=== PATIENT | female | born 1990 | race African-American/Black ===

== ENCOUNTER 2019-01-09 21:30 | Emergency (ER) | payer OTHER ==
[2019-01-09 22:05] LABS: #Eosinphils 0.3 thou/uL (0.0-0.7); #Lymphocytes 2.1 thou/uL (1.20-3.40); #Monocytes 0.9 thou/uL (0.11-0.59); #Neutrophils 8.7 thou/uL (1.40-6.50); %Basophils 0.4 % (0.0-1.0); %Eosinophils 2.4 % (0.0-10.0); %Lymphocytes 17.3 % (21.0-51.0); %Monocytes 7.3 % (0.0-10.0); %Neutrophils 72.6 % (42.0-75.0); Hemoglobin 9.6 g/dL (12.0-16.0); Mean Corpuscular HGB CONC 32.1 g/dL (32.0-36.0); Mean Corpuscular Volume 90.3 fL (78.0-98.0); Mean Platelet Volume 7.1 fL (7.4-10.4); Platelet Count 355 thou/uL (130-400); RBC Distribution Width 13.5 % (11.5-14.5); White Blood Cell (WBC) Count 11.9 thou/uL (4.8-10.8)
[2019-01-09 22:06] LABS: Bilirubin Negative (Negative); Blood, Urine Negative (Negative); Clarity Clear (Clear); Glucose, Urine (Dipstick) Normal (Negative); Leukocyte 75 Leu/uL (Negative); Mucous/LPF Rare LPF (<2+); Nitrite Negative (Negative); Protein, Urine (Dipstick) 10 mg/dL (Neg-Trace); Squamous Epithelial 0-3 HPF (0-3); Urobilinogen Normal mg/dL (Less than 2)
[2019-01-09 22:07] LABS: Bacteria/HPF 1+ HPF (None Seen)
[2019-01-09 22:30] LABS: ALT (SGPT) 23 U/L (8-55); AST (SGOT) 30 U/L (5-34); Albumin 3.3 g/dL (3.5-5.0); Alkaline Phosphatase 57 U/L (40-150); Anion Gap 10 mmol/L (10-20); BUN (Urea Nitrogen) 6 mg/dL (7.0-18.7); Bilirubin, Total 0.3 mg/dL (0.2-1.2); Calc. Creatinine Clearance 0 mL/min (70-130); Calcium 9.1 mg/dL (7.8-10.44); Carbon Dioxide 23 mmol/L (22-29); Chloride 103 mmol/L (98-107); Estimated GFR-MDRD Greater than 90; Glucose 95 mg/dL (70-105); Potassium 3.3 mmol/L (3.5-5.1); Protein, Total 7.3 g/dL (6.0-8.3); Sodium 133 mmol/L (136-145)
== END 2019-01-09 23:59 | disposition home or self-care (01) ==
LOC: ERS 21:30
DX: O23.42 Unspecified infection of urinary tract in pregnancy, second trimester (principal); O99.352 Diseases of the nervous system complicating pregnancy, second trimester; G43.909 Migraine, unspecified, not intractable, without status migrainosus; Z3A.18 18 weeks gestation of pregnancy
CPT/HCPCS: 36415; 80053; 81003; 81015; 84702; 85025; 87086; 99284

== ENCOUNTER 2019-03-08 20:01 | Day surgery (SDC) | payer OTHER ==
[2019-03-08 20:52] VITALS: BP 136/85; TEMP 98.7; BMI 33.1
[2019-03-08 20:59] LABS: Amnisure Test No Membranes Rupture (No Rupture)
[2019-03-08 21:00] LABS: Amnisure Internal Control QC ACCEPTABLE (ACCEPTABLE)
--- NOTE | 2019-03-08 22:19 | PDOC.LDHP ---
Labor and Delivery H&P Chief complaint: loss of fluid HPI: 28 y/o at 27w4d, patient of Dr. Britton, presents with ?LOF. Patient reports a large gush of clear fluid earlier with no continued leaking. Denies VB, ctx, or other concerns. ROS neg for HEENT, cv, pulm, gi, gu, neuro, psych, skin, musculoskeletal or constitutional symptoms other than mentioned above. OB History Details: Hx SROM and preeclampsia at 35 weeks 1 prior SAB Past Medical History: None Current medications: pre-jo vitamins Previous surgical history: none Allergies/Adverse Reactions: Allergies Allergy/AdvReac Type Severity Reaction Status Date / Time No Known Allergies Allergy Verified 03/08/19 20:53 Social history: none - Physical Exam Vital signs reviewed and normal: yes General: NAD, resting Lungs: nonlabored breathing Abdomen: gravid Extremeties: no edema FHT: category 1 (140s, mod variability, + accels, single variable decel) - Vaginal Exam cm dilated: 0 Effacement: 0% Station: -3 - Assessment 28 y/o at 27w4d with no e/o SROM. Amnisure negative. Speculum exam negative for pooling or valsalva. status reassuring. Bedside ultrasound performed with normal ADRIANA (22cm), good movement and tone. - Plan -: D/c home with precautions. Advised to keep all appointments.
== END 2019-03-08 22:45 | disposition home or self-care (01) ==
LOC: L&D/OP 20:01
PROVIDERS: ATTEND Obstetrics & Gynecology
DX: O99.89 Other specified diseases and conditions complicating pregnancy, childbirth and the puerperium (principal); N89.8 Other specified noninflammatory disorders of vagina; Z3A.27 27 weeks gestation of pregnancy
CPT/HCPCS: 76815; 84112; 87480; 87510; 87660; 99283

== ENCOUNTER 2019-03-10 13:55 | Day surgery (SDC) | payer OTHER ==
[2019-03-10 14:27] VITALS: BMI 31.2
[2019-03-10 14:35] VITALS: BP 126/66; TEMP 99.3
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
== END 2019-03-10 15:20 | disposition home health service (06) ==
LOC: L&D/OP 13:55
PROVIDERS: ATTEND Obstetrics & Gynecology
DX: O99.89 Other specified diseases and conditions complicating pregnancy, childbirth and the puerperium (principal); R10.2 Pelvic and perineal pain; Z3A.27 27 weeks gestation of pregnancy; V49.60XA Unspecified car occupant injured in collision with unspecified motor vehicles in traffic accident, initial encounter; Y92.219 Unspecified school as the place of occurrence of the external cause

== ENCOUNTER 2019-04-09 07:49 | Day surgery (SDC) | payer OTHER ==
[2019-04-09] MEDS ORDERED: hydrALAZINE 20 MG/ML VIAL SLOW IVP PRN ×2 (09:50→10:10)
--- NOTE | 2019-04-09 11:14 | ER ---
DATE OF SERVICE: 04/09/2019 TIME OF SERVICE: 10:30. PRESENTING COMPLAINT: Decreased movement overnight. HISTORY OF PRESENT ILLNESS: Ms. Wong is a 28-year-old 2, para 1, with EDC of 06/03, placing her at 32 weeks' gestation, who works at [employer]. She sees Dr. Nolan Britton. She reports decreased movement overnight, presented to the [facility] ER. In the [facility] ER, she was noted to have FHTs in the 140s. She was transferred to Labor and Delivery at [facility] for nonstress test and for biophysical profile. During ambulance ride, she felt the baby start moving. SANITARY INSPECTOR HISTORY: x1 at 35 weeks, 6 pounds and 7 ounces with spontaneous delivery. Blood type O positive. Antibody negative. Pap negative. Rubella immune. VDRL nonreactive. Hepatitis B, GC, chlamydia are negative. PAST MEDICAL HISTORY: Denies. PAST SURGICAL HISTORY: Denies. ALLERGIES: DENIES. MEDICATIONS: vitamins. SOCIAL HISTORY: Denies tobacco, alcohol, or IV drug use. FAMILY HISTORY: Noncontributory. REVIEW OF SYSTEMS: Noncontributory. PHYSICAL EXAMINATION: GENERAL: White female, resting comfortably. VITAL SIGNS: Temperature 98.4, pulse 95, respirations 18, blood pressure 130/87. HEENT: Within normal limits. LUNGS: Clear to auscultation bilaterally. HEART: Regular rhythm. ABDOMEN: Soft and nontender without rebound or guarding. Vulva without lesions. Vaginal exam deferred. EXTREMITIES: No clubbing, cyanosis, or edema. FHTs 140s. DIAGNOSTIC STUDIES: nonstress testing was carried out. No significant contractions were noted. The patient had a baseline at 140s to 150s with occasional acceleration of 5 to 10 beats per minute. No spontaneous deceleration noted on greater than 30 minutes of monitoring. activity was noted on monitor. Biophysical profile was carried out, which revealed an ADRIANA of 11 plus cm, greater than 3 cm cervix and anterior placenta, FHTs 140s. The BPP was 6/8 with absent breathing. Infant was noted to be very active on exam. IMPRESSION: Decreased movement, now resolved with a reassuring nonstress test and a BPP that was 6/8, but the 2 off was for breathing, which can be absent at 32 weeks' gestation in normal pregnancies. No evidence of compromise noted. PLAN: Discharge home. ER precautions. The patient is to keep scheduled followup in [address] Britton. Job ID: [id number]
--- NOTE | 2019-04-09 12:02 | ULT ---
BIOPHYSICAL PROFILE: HISTORY: Decreased movements. FINDINGS: Real-time images of the pelvis show a single viable intrauterine in a cephalic presentation . The cervical canal length is 3.9 cm. heart rate is 143 beats per minute. Amniotic fluid is ad equate for this stage of . Amniotic fluid index is 11.3. The biophysical profile scor e is 6 of a possible 8. Breathing movements were not perceived at the exam. IMPRESSION: biophysical profile score of 6 of a possible 8. POS: TPC
== END 2019-04-09 10:47 | disposition home or self-care (01) ==
LOC: L&D/OP 07:49 → SCSER 07:49 → L&D/OP 07:49 → EDSTATUS 09:46 → L&D/OP 10:47
DX: O36.8130 Decreased fetal movements, third trimester, not applicable or unspecified (principal); Z3A.32 32 weeks gestation of pregnancy
CPT/HCPCS: 76819

== ENCOUNTER 2019-05-07 04:43 | Inpatient (IN) | payer OTHER ==
[2019-05-07 05:16] VITALS: BMI 31.4
[2019-05-07] MEDS ORDERED: hydrALAZINE 20 MG/ML VIAL SLOW IVP PRN ×3 (06:10→17:11)
--- NOTE | 2019-05-07 06:42 | PRG ---
DATE OF SERVICE: 05/07/2019 PRIMARY OB: Nolan Britton DO, MS CHIEF COMPLAINT: Abdominal pain. HISTORY OF PRESENT ILLNESS: The patient is a 28-year-old G2, P1 female with an intrauterine at 36 weeks and a day, presenting to Labor and Delivery with uterine contractions that she says have become closer together since yesterday. She has a history of delivery at 35 weeks with her previous and was 4 cm in the office yesterday, and was given instructions to seek medical attention , if her contractions got closer together. The patient reports that there are irregular in intensity and she denies vaginal bleeding or leakage of fluid or urinary urgency or frequency. She denies any recent illness, fever, or fall. The patient reports intermittent headaches and blurry vision that she has had since the beginning of her . She denies chest pain, shortness of breath. She has had nausea, no vomiting, reports intermittent diarrhea, constipation. Denies any new rashes, hip problems, knee problems, muscle weakness. PAST MEDICAL HISTORY: Negative. PAST SURGICAL HISTORY: Negative. ALLERGIES: NO KNOWN DRUG ALLERGIES. MEDICATIONS: vitamins. SOCIAL HISTORY: Denies drug, alcohol, tobacco use. OB LABS: Unavailable at time of dictation. REVIEW OF SYSTEMS: Per HPI. PHYSICAL EXAMINATION: VITAL SIGNS: Blood pressure 140/91, heart rate of 90, respiratory rate of 20, temperature 98.9. GENERAL: She appears to be in no acute distress. She is alert, oriented, cooperative, and pleasant to interact with. HEENT: Head is normocephalic, atraumatic. LUNGS: Clear to auscultation bilaterally. HEART: Regular rate and rhythm. ABDOMEN: Gravid, soft, nontender. EXTREMITIES: Nontender, nonedematous. CERVICAL EXAM: 4.5, 50, -3 station. heart tracing shows a baseline in the 130s with moderate long-term variability, positive 15 x 15 accelerations, no decelerations. Contractions are about every 6 to 7 minutes. ASSESSMENT AND PLAN: The patient is a 28-year-old female with an intrauterine at 36 weeks and here for evaluation of labor. Cervix is unchanged from yesterday at 4.5 cm. She is tc fairly irregularly at this time. We will be watching her for the next 2 to 3 hours as the patient lives about 45 minutes from here. Also, noted her blood pressures are in the mild range with intermittent headaches and blurry vision. We will be getting pi labs for further evaluation. Fetus at this time has a category 1 tracing and reactive NST. Job ID: [id number] MTDD
[2019-05-07 06:47] LABS: Hemoglobin 8.4 g/dL (12.0-16.0); Mean Corpuscular HGB CONC 31.5 g/dL (32.0-36.0); Mean Corpuscular Hemoglobin 23.6 pg (27.0-31.0); Mean Corpuscular Volume 74.9 fL (78.0-98.0); Mean Platelet Volume 8.6 fL (7.4-10.4); Platelet Count 262 thou/uL (130-400); Red Blood Cell (RBC) Count 3.57 mill/uL (4.20-5.40); White Blood Cell (WBC) Count 7.5 thou/uL (4.8-10.8)
[2019-05-07 07:07] LABS: ALT (SGPT) 17 U/L (8-55); AST (SGOT) 24 U/L (5-34); Albumin 3.3 g/dL (3.5-5.0); Alkaline Phosphatase 155 U/L (40-110); Anion Gap 11 mmol/L (10-20); BUN (Urea Nitrogen) 4 mg/dL (7.0-18.7); Bilirubin, Total 0.5 mg/dL (0.2-1.2); Calc. Creatinine Clearance 180 mL/min (70-130); Calcium 8.6 mg/dL (7.8-10.44); Carbon Dioxide 24 mmol/L (22-29); Chloride 105 mmol/L (98-107); Estimated GFR-MDRD Greater than 90; Globulin 3.8 g/dL (2.4-3.5); Glucose 84 mg/dL (70-105); Potassium 3.1 mmol/L (3.5-5.1); Protein, Total 7.1 g/dL (6.0-8.3); Sodium 137 mmol/L (136-145); Uric Acid 4.8 mg/dL (2.6-6.0)
[2019-05-07] MEDS ORDERED: Butorphanol Tartrate 1 MG/ML VIAL SLOW IVP PRN (07:38)
[2019-05-07] MEDS ORDERED: HYDROcodone/Acetaminophen 5/325 mg Tablet PO PRN (07:38)
[2019-05-07] MEDS ORDERED: Ibuprofen 800 MG TAB PO PRN (07:38)
[2019-05-07] MEDS ORDERED: Ondansetron PF 4 MG/2 ML Vial IVP PRN ×3 (07:38→17:11)
[2019-05-07] MEDS ORDERED: NS / Oxytocin 40 units/1000ml 1,000 ML IV PRN (07:38)
[2019-05-07] MEDS ORDERED: Lidocaine 1% (PF) 30 ML VIAL SC PRN (07:38)
[2019-05-07] MEDS ORDERED: Lactated Ringer's 1,000 ML IV SCH (07:45)
[2019-05-07] MEDS ORDERED: Betamet Acet/Betamet Na Ph 30 MG/5 ML VIAL IM SCH (07:45)
[2019-05-07] MEDS ORDERED: Penicillin G Potassium 5 MILL.UNITS in Sodium Chloride 0.9% 100 ML IVPB SCH (07:45)
[2019-05-07 07:48] LABS: Creatinine, Urine 37.69 mg/dL (47-110); Protein, Urine Random Quant Less than 10 mg/dL (1-14)
[2019-05-07] MEDS ORDERED: Fentanyl 4 mcg/Bup 0.1% Cadd 100 ML ONE (08:01)
[2019-05-07] MEDS: Lactated Ringer's 1,000 ML IV SCH ×2 (08:02→12:52)
[2019-05-07 08:52] LABS: Syphilis Antibody Nonreactive (Nonreactive); Syphilis Antibody Index 0.06 S/CO (<1.00 Non-Reactive)
[2019-05-07 08:58] LABS: Hep B Surf Ag Non-Reactive S/CO (NonReactive)
[2019-05-07] MEDS ORDERED: Bupivacaine/Epinephrine 0.25% 30 ML VIAL ONE (09:00)
[2019-05-07] MEDS ORDERED: diphenhydrAMINE 50 MG/ML VIAL IVP PRN (09:14)
[2019-05-07] MEDS ORDERED: Naloxone HCl 0.4 mg/ml Vial IVP PRN ×2 (09:14)
[2019-05-07] MEDS ORDERED: Lactated Ringer's 500 ML IV PRN (09:14)
[2019-05-07] MEDS ORDERED: Promethazine HCl 25 MG/ML VIAL IM PRN (09:14)
[2019-05-07] MEDS ORDERED: ePHEDrine/0.9% NaCl/PF SYRINGE 50 mg/10 ml SLOW IVP PRN (09:14)
[2019-05-07] MEDS ORDERED: Acetaminophen 325 MG TAB PO PRN (09:14)
[2019-05-07] MEDS ORDERED: Fentanyl 4 mcg/Bupivacaine 0.1% Cassette 100 ML EPIDURAL SCH (09:15)
[2019-05-07] MEDS ORDERED: Communication Order-Pharmacy FS SCH (09:15)
[2019-05-07] MEDS: Penicillin G 2.5 MILL.units 2.5 MILL.UNITS in Premix Bag 1 BAG IVPB SCH ×2 (12:28→19:28)
--- NOTE | 2019-05-07 13:21 | PDOC.LDPN ---
Labor & Delivery Progress Note - Subjective Subjective: comfortable - Objective Vital signs reviewed and normal: yes General: resting Dilation: 7 Effacement: 75% Station: 1+ FHT: category 1 AROM: clear fluid - Assessment (1) 36 weeks gestation of Code(s): Z3A.36 - 36 WEEKS GESTATION OF Current Visit: Yes Status : Acute (2) labor Code(s): O60.00 - LABOR WITHOUT DELIVERY, UNSPECIFIED TRIMESTER Current Visit: Yes Status: Acute Plan: continue plan of care, other (pitocin if unchanged in 1 hour, SP celestone and PCN x 2)
[2019-05-07] MEDS ORDERED: NS w/ Oxytocin 10 units 500 ML ONE (14:42)
[2019-05-07] MEDS ORDERED: Bisacodyl 10 MG SUPP PR PRN (17:11)
[2019-05-07] MEDS ORDERED: NS / Oxytocin 40 units/1000ml 1,000 ML IV SCH (17:11)
[2019-05-07] MEDS ORDERED: Adacel (T-DAP) 0.5 ML SYRINGE IM ONE (17:11)
[2019-05-07] MEDS ORDERED: Benzocaine-Menthol 82.5 ML CAN TOP PRN (17:11)
[2019-05-07] MEDS ORDERED: Lanolin Ointment 7 GM TUBE TOP PRN (17:11)
[2019-05-07] MEDS ORDERED: Preparation H Ointment 28 GM TUBE PR PRN (17:11)
[2019-05-07] MEDS ORDERED: diphenhydrAMINE 25 MG CAP PO PRN (17:11)
[2019-05-07] MEDS ORDERED: Milk Of Magnesia 30 ML UDCUP PO PRN (17:11)
[2019-05-07] MEDS ORDERED: Sodium Chloride 0.9% 10 ML ONE (18:08)
[2019-05-07] MEDS: Ferrous Sulfate 325 MG TAB PO SCH (19:40)
[2019-05-07] MEDS ORDERED: Ferrous Sulfate 325 MG TAB PO SCH (19:45)
[2019-05-07] MEDS: HYDROcodone/Acetaminophen 5/325 mg Tablet PO PRN (20:27)
[2019-05-07] MEDS: Ibuprofen 800 MG TAB PO SCH (21:28)
[2019-05-07] MEDS: Docusate Calcium (SURFAK) 240 MG CAP PO SCH (21:28)
[2019-05-08] MEDS: HYDROcodone/Acetaminophen 5/325 mg Tablet PO PRN ×3 (03:45→19:51)
[2019-05-08 05:40] LABS: Hemoglobin 7.7 g/dL (12.0-16.0); Mean Corpuscular HGB CONC 31.4 g/dL (32.0-36.0); Mean Corpuscular Hemoglobin 23.6 pg (27.0-31.0); Mean Corpuscular Volume 75.1 fL (78.0-98.0); Mean Platelet Volume 9.1 fL (7.4-10.4); Platelet Count 232 thou/uL (130-400); RBC Distribution Width 17.9 % (11.5-14.5); Red Blood Cell (RBC) Count 3.27 mill/uL (4.20-5.40); White Blood Cell (WBC) Count 15.5 thou/uL (4.8-10.8)
[2019-05-08] MEDS: Ibuprofen 800 MG TAB PO SCH ×3 (06:02→21:46)
[2019-05-08] MEDS: Prenatal Vitamin 1 TAB PO SCH (08:16)
[2019-05-08] MEDS: Docusate Calcium (SURFAK) 240 MG CAP PO SCH ×2 (08:16→21:46)
[2019-05-08] MEDS: Ferrous Sulfate 325 MG TAB PO SCH ×2 (08:17→16:40)
--- NOTE | 2019-05-08 10:30 | PDOC.PP ---
Post Progress Note Post Day #: 1 Subjective: doing well, minimal bleeding PO intake tolerated: yes Flatus: yes Ambulation: yes Vital Signs (12 hours) Temp Pulse Resp BP Pulse Ox 05/08/19 07:34 98.0 F 68 20 131/81 97 05/08/19 04:00 98.1 F 70 18 120/79 98 05/08/19 00:00 98 F 78 18 126/72 99 Weight Weight 189 lb - Physical Examination General: NAD Respiratory: non-labored breathing Abdominal: no distention Fundus firm & at: below umb Extremities: negative homans (B) Skin: no rash Neurological: no gross focal deficits Psychiatric: A&Ox3, normal affect Result Diagrams: 05/08/19 05:18 05/07/19 06:36 Additional Labs: Post Labs Blood Type O POSITIVE 05/07/19 08:02 Hep Bs Antigen Non-Reactive S/CO (NonReactive) 05/07/19 08:02 (1) 36 weeks gestation of Code(s): Z3A.36 - 36 WEEKS GESTATION OF Status: Acute (2) labor Code(s): O60.00 - LABOR WITHOUT DELIVERY, UNSPECIFIED TRIMESTER Status : Acute - Assessment/Plan PPD1 sp PT @ 36 weeks w spont PTL. Anemia during and PP. Plan for DC tomorrow if baby DC.
[2019-05-09] MEDS: Ibuprofen 800 MG TAB PO SCH ×2 (06:05→14:05)
[2019-05-09] MEDS: HYDROcodone/Acetaminophen 5/325 mg Tablet PO PRN (06:09)
[2019-05-09 07:42] VITALS: BP 130/77; TEMP 98.2
--- NOTE | 2019-05-09 08:03 | DIS ---
DATE OF ADMISSION: 05/07/2019 DATE OF DISCHARGE: 05/09/2019 ADMITTING DIAGNOSES: 1. Intrauterine at 36 weeks. 2. labor. DISCHARGE DIAGNOSES: 1. Intrauterine at 36 weeks. 2. labor. PROCEDURE: spontaneous vaginal delivery. HOSPITAL COURSE: The patient is a 28-year-old female presenting to Labor and Delivery at 36 weeks gestation with contractions and was admitted for labor her resulting in a spontaneous vaginal delivery. Her course has been uncomplicated. She is now day 2. She reports today that she is tolerating p.o., voiding on her own, and having decreased lochia and good pain control. DISCHARGE PHYSICAL EXAMINATION: VITAL SIGNS: This morning, blood pressure is 131/87, temperature 98.1, pulse is 79, respiratory rate 14, saturating 95% to 99% on room air. GENERAL: She appears to be in no acute distress. She is alert, oriented, cooperative, and pleasant to interact with. HEENT: Head is normocephalic, atraumatic. ABDOMEN: Fundus is firm at the umbilicus. EXTREMITIES: Nontender and nonedematous. The patient will be discharged to home with ibuprofen and iron. She has instructions to seek to follow up with Dr. Britton in 6 weeks or sooner, if she experiences fever, increasing pain, or bleeding. Job ID: [id number]
[2019-05-09] MEDS: Ferrous Sulfate 325 MG TAB PO SCH ×2 (08:20→17:08)
[2019-05-09] MEDS: Prenatal Vitamin 1 TAB PO SCH (08:21)
[2019-05-09] MEDS: Docusate Calcium (SURFAK) 240 MG CAP PO SCH (08:21)
--- NOTE | 2019-05-12 07:50 | PQF ---
REECE MIX JAMIE DO [id number] CLINICAL DOCUMENTATION CLARIFICATION FORM: POST DISCHARGE Addendum to original discharge summary date: ____ Late entry note date: __ DATE: 05/12/2019 ATTN: NOLAN SOLOMON DO Please exercise your independent, professional judgment in responding to the clarification form. Clinical indicators are provided on the bottom of this form for your review Please check appropriate box(s): [ ] Acute blood loss anemia [ ] Post-op anemia related to acute blood loss [ ] Anemia: [ ] Aplastic [ ] Nutritional [ ] Drug induced (specify) ___ [ ] Hemolytic [ ] Hereditary [ ] Acquired [ ] Autoimmune [ ] Non-autoimmune [ ] Enzyme disorder [ x] Chronic Anemia: [ ] Blood loss [ ] Hemolytic [ ] Simple [ ] Due to Vitamin B12 Deficiency [ ] Other [ ] Anemia of Chronic Disease (please specify) [ ] Other diagnosis [ ] Unable to determine For continuity of documentation, please document condition throughout progress notes and discharge summary. Thank You. CLINICAL INDICATORS - SIGNS / SYMPTOMS / LABS -Anemia during and PP-Post Progress note, 05/08Nolan DO -Minimal bleeding-Progress note, 05/08Nolan DO -EBL: QBL: 32 -HGB: 8.4L- 05/07, 7.7L-05/08 -HCT: 26.8L-05/07, 24.5L-05/08 RISK FACTORS - labor-Progress note, 05/08Nolan DO - Laceration type: Periurethral -L and D , 05/07, Nolan Solomon DO - Delivery method: Vaginal-L and D , 05/07, Nolan Solomon DO TREATMENTS: -Ferrous sulfate PO 05/07 (This form is maintained as a part of the permanent medical record) 2014 [employer]. All Rights Reserved Nancy Addison [not provided] [not provided] MTDD
== END 2019-05-09 18:15 | disposition home or self-care (01) | DRG 807 ==
LOC: L&D/OP 04:43 → L&D 07:55 → 3SE 18:08
PROVIDERS: ADMIT Obstetrics & Gynecology; ATTEND Obstetrics & Gynecology
PROC: 10E0XZZ Delivery of Products of Conception, External Approach (ICD-10-PCS; principal; 2019-05-07)
PROC: 0UQMXZZ Repair Vulva, External Approach (ICD-10-PCS; 2019-05-07)
DX: O60.14X0 Preterm labor third trimester with preterm delivery third trimester, not applicable or unspecified (principal); Z37.0 Single live birth; Z3A.36 36 weeks gestation of pregnancy; O71.82 Other specified trauma to perineum and vulva; O99.02 Anemia complicating childbirth; D64.9 Anemia, unspecified
CPT/HCPCS: 36415; 51702; 80053; 82570; 84156; 84550; 85027; 86780; 86850; 86900; 86901; 87081; 87340; 90715; 99285; J0702; J2540; J2590; J3490